=== PATIENT | male | born 1965 | race Caucasian/White ===

== ENCOUNTER 2016-12-17 04:19 | Emergency (ER) | payer OTHER ==
[~2016-12-17] VITALS: Ht 175.3 cm; Wt 109.1 kg
[~2016-12-17 04:19] MED LIST: ALBUAER3 INH; AMLO10TA2 PO; BUPR100T4 PO; IBUP-232 PO; LISI40TA PO; MEDR4PAK PO; OMEP20CA2 PO; TRAZ100T4 PO; ZITHTAB PO; ZYPR10TA PO
[2016-12-17 04:21] VITALS: BP 145/66; PULSE 85; RESP 20; TEMP 98.7
[2016-12-17 04:24] VITALS: O2SAT 95
[2016-12-17] MEDS ORDERED: LAMO100 PO (04:30)
[2016-12-17] MEDS ORDERED: SODIUM CHLOR 0.9% 1000 ML INJ 1,000 ML IV SCH (04:47)
[2016-12-17] MEDS ORDERED: SODIUM CHLORIDE 0.9% FLUSH 10 ML FLUSH IV FLUSH PRN (05:00)
[2016-12-17 05:28] LABS: AUTOMATED NEUTROPHIL # 6.3 TH/MM3 (1.8-7.7); BASOPHIL # 0.1 TH/MM3 (0-0.2); BASOPHIL % 0.8 % (0.0-2.0); EOSINOPHIL # 0.1 TH/MM3 (0-0.4); EOSINOPHIL % 1.6 % (0.0-4.0); HEMATOCRIT 42.2 % (39.0-51.0); HEMO FLAGS DIFF FINAL; LYMPH % 19.5 % (9.0-44.0); LYMPHOCYTE # 1.7 TH/MM3 (1.0-4.8); MEAN CORPUSCULAR HGB CONC 35.7 % (32.0-36.0); MONO % 3.9 % (0.0-8.0); NEUT % 74.2 % (16.0-70.0); PLATELET COUNT 241 TH/MM3 (150-450); RED BLOOD COUNT 5.02 MIL/MM3 (4.50-5.90); RED CELL DISTRIBUTION WIDTH 12.6 % (11.6-17.2); WHITE BLOOD COUNT 8.5 TH/MM3 (4.0-11.0)
[2016-12-17 05:40] LABS: APTT (PATIENT) 30.6 SEC (24.3-30.1); INTERNATIONAL NORMALIZED RATIO 1.4 RATIO; PROTHROMBIN TIME - PATIENT 15.4 SEC (9.8-11.6)
[2016-12-17] MEDS ORDERED: KETOROLAC TROMETHAMINE 30 MG/ML (IVP) VIAL IV PUSH ONE (05:45)
--- NOTE | 2016-12-17 05:46 | PD ---
HPI Chief Complaint: Pain: Acute or Chronic Time Seen by Provider: 04:38 Travel History International Travel<30 days: No Contact w/Intl Traveler<30days: No Traveled to known affect area: No History of Present Illness HPI Patient is a 51-year-old male who presents to emergency room with multiple complaints. Patient reports that he woke up this morning and had pains to the left side of his neck. Reports that he has been having pains all over his body , reports that he feels lightheaded and dizzy, reports that he feels dehydrated. Patient reports that the left side of his chest hurts him, reports that his chest always hurts him, paresis or shortness of breath with his symptoms. Patient also complains of abdominal pain, reports that he was told that he has liver disease in the past, patient requests that I check his liver functions. Reports that he does drink alcohol in the weekends, denies history of alcohol abuse. Patient reports that he feels uncomfortable all over, reports that he feels dehydrated. PFSH Past Medical History Cardiovascular Problems: Yes Diminished Hearing: No GERD: Yes Hypertension: Yes Respiratory: Yes Sleep Apnea: Yes (cpap at nite) Social History Alcohol Use: Yes (heavy alcohol use) Tobacco Use: Yes (1 PACK PER DAY) Substance Use: No Allergies-Medications (Allergen,Severity, Reaction): Coded Allergies: No Known Allergies (Unverified , 12/17/16) Reported Meds & Prescriptions Reported Meds & Active Scripts Active Amlodipine (Amlodipine Besylate) 10 Mg Tab 10 Mg PO DAILY Lisinopril 40 Mg Tab 40 Mg PO DAILY Reported Lamictal (Lamotrigine) 100 Mg Tab 100 Mg PO DAILY Bupropion HCl 100 Mg Tab 300 Mg PO DAILY Trazodone (Trazodone HCl) 100 Mg Tab 100 Mg PO HS Ibuprofen 600 Mg Tab 600 Mg PO Q6H PRN Omeprazole 20 Mg Cap 40 Mg PO DAILY Review of Systems General / Constitutional: No: Fever, Chills Eyes: No: Visual changes HENT: Positive: Lightheadedness, Neck Pain, No: Headaches Cardiovascular: Positive: Chest Pain or Discomfort Respiratory: No: Shortness of Breath Gastrointestinal: Positive: Abdominal Pain, No: Nausea, Vomiting Genitourinary: Positive: Decreased Urinary Output, No: Dysuria Musculoskeletal: No: Pain Skin: No Rash Neurologic: No: Weakness Psychiatric: No: Depression Endocrine: No: Polydipsia Hematologic/Lymphatic: No: Easy Bruising Physical Exam Narrative GENERAL: NAD SKIN: Focused skin assessment warm/dry. HEAD: Atraumatic. Normocephalic. EYES: Pupils equal and round. No scleral icterus. No injection or drainage. ENT: No nasal bleeding or discharge. Mucous membranes pink and moist. NECK: Trachea midline. No JVD. Patient with left sided paraspinal muscle tenderness CARDIOVASCULAR: Regular rate and rhythm. No murmur appreciated. RESPIRATORY: No accessory muscle use. Clear to auscultation. Breath sounds equal bilaterally. GASTROINTESTINAL: Abdomen soft, non-tender, nondistended. Hepatic and splenic margins not palpable. Patient with no abdominal pain on palpation MUSCULOSKELETAL: No obvious deformities. No clubbing. No cyanosis. No edema. NEUROLOGICAL: Awake and alert. No obvious cranial nerve deficits. Motor grossly within normal limits. Normal speech. CN 2-12 grossly intact with no neurological deficits PSYCHIATRIC: Appropriate mood and affect; insight and judgment normal. Data Data Last Documented VS Vital Signs Date Time Temp Pulse Resp B/P Pulse Ox O2 Delivery O2 Flow Rate FiO2 12/17/16 04:24 95 12/17/16 04:21 98.7 85 20 145/66 Orders Complete Blood Count With Diff (12/17/16 04:47) Comprehensive Metabolic Panel (12/17/16 04:47) Lipase (12/17/16 04:47) Prothrombin Time / Inr (Pt) (12/17/16 04:47) Act Partial Throm Time (Ptt) (12/17/16 04:47) Urinalysis - C+S If Indicated (12/17/16 04:47) Iv Access Insert/Monitor (12/17/16 04:47) Ecg Monitoring (12/17/16 04:47) Sodium Chlor 0.9% 1000 Ml Inj (Ns 1000 M (12/17/16 04:47) Sodium Chloride 0.9% Flush (Ns Flush) (12/17/16 05:00) Drug Screen, Random Urine (12/17/16 04:47) Ketorolac Inj (Toradol Inj) (12/17/16 05:45) Chest, Single Ap (12/17/16 05:47) Labs Laboratory Tests Test 12/17/16 05:10 White Blood Count 8.5 TH/MM3 Red Blood Count 5.02 MIL/MM3 Hemoglobin 15.1 GM/DL Hematocrit 42.2 % Mean Corpuscular Volume 84.0 FL Mean Corpuscular Hemoglobin 30.0 PG Mean Corpuscular Hemoglobin 35.7 % Concent Red Cell Distribution Width 12.6 % Platelet Count 241 TH/MM3 Mean Platelet Volume 7.4 FL Neutrophils (%) (Auto) 74.2 % Lymphocytes (%) (Auto) 19.5 % Monocytes (%) (Auto) 3.9 % Eosinophils (%) (Auto) 1.6 % Basophils (%) (Auto) 0.8 % Neutrophils # (Auto) 6.3 TH/MM3 Lymphocytes # (Auto) 1.7 TH/MM3 Monocytes # (Auto) 0.3 TH/MM3 Eosinophils # (Auto) 0.1 TH/MM3 Basophils # (Auto) 0.1 TH/MM3 CBC Comment DIFF FINAL Differential Comment Prothrombin Time 15.4 SEC Prothromb Time International 1.4 RATIO Ratio Activated Partial 30.6 SEC Thromboplast Time Sodium Level 136 MEQ/L Potassium Level 3.5 MEQ/L Chloride Level 99 MEQ/L Carbon Dioxide Level 25.0 MEQ/L Anion Gap 12 MEQ/L Blood Urea Nitrogen 9 MG/DL Creatinine 1.02 MG/DL Estimat Glomerular Filtration 77 ML/MIN Rate Random Glucose 99 MG/DL Calcium Level 8.1 MG/DL Total Bilirubin 2.9 MG/DL Aspartate Amino Transf 3632 U/L (AST/SGOT) Alanine Aminotransferase 2334 U/L (ALT/SGPT) Alkaline Phosphatase 104 U/L Total Protein 6.4 GM/DL Albumin 3.7 GM/DL Lipase 214 U/L [facility] Medical Decision Making Medical Screen Exam Complete: Yes Emergency Medical Condition: Yes Interpretation(s) EKG at 0418: NSR at 82bpm, qt/qtc: 364/402, no acute st or t wave changes Vital Signs Date Time Temp Pulse Resp B/P Pulse Ox O2 Delivery O2 Flow Rate FiO2 12/17/16 04:24 95 12/17/16 04:21 98.7 85 20 145/66 Differential Diagnosis Dehydration, electrolyte abnormality, cervical strain, ACS, arrhythmia, pneumonia, pneumothorax Narrative Course Patient is a 51-year-old male who presents to emergency room with multiple complaints. Patient reports that he has been feeling dizzy, lightheaded, has been having chest pain, neck pain, body pains for the past 2 days. He reports that he feels dehydrated. Reports that symptoms have been ongoing for the past 2 days. Overall, patient with benign exam, cranial nerves to 12 grossly intact with no neurological deficits. Patient does complain of left-sided neck tenderness, patient does have paraspinal tenderness on evaluation. IV Toradol ordered for patient. Patient with complaints of chest pain for the past few weeks, EKG is normal sinus rhythm at 82 bpm, no acute ST-T wave changes. Plan to obtain lab work and x-ray of the chest, will give IV fluids and monitor on secured entrance monitor. Patient comfortable in the emergency room, sleeping with no complaints. Plan to discharge patient with follow-up with his primary care doctor Patient awoken. I reviewed all labs and studies with him in detail. Patient will return to emergency room as needed. Patient will follow-up with collator operator for his transaminitis which is known to him already. Reports that his LFT's are at baseline. Discussed need to stop drinking alcohol. Patient understands Diagnosis Primary Impression: Generalized weakness Additional Impressions: Cervical strain Qualified Code: S16.1XXA - Cervical strain, initial encounter Transaminitis Referrals: Jayce Telles MD Patient Instructions: General Instructions Additional Instructions: Please follow-up with your primary care doctor Return to the emergency room as needed Return to the emergency room if symptoms worsen or progress Please follow up with collator operator as soon as possible as your liver function test were elevated Disposition: 01 DISCHARGE HOME Condition: Stable PrimitivoLeslie Dharmesh SANDERSON Dec 17, 2016 05:46
[2016-12-17 05:52] LABS: ANION GAP 12 MEQ/L (5-15); BLOOD UREA NITROGEN 9 MG/DL (7-18); CHLORIDE 99 MEQ/L (98-107); GLOMERULAR FILTRATION RATE 77 ML/MIN (>89); POTASSIUM 3.5 MEQ/L (3.5-5.1); SODIUM (NA) 136 MEQ/L (136-145)
[2016-12-17 06:08] LABS: ALKALINE PHOSPHATASE 104 U/L (45-117); ALT (GPT) 2334 U/L (12-78); AST (GOT) 3632 U/L (15-37); TOTAL BILIRUBIN ADULT 2.9 MG/DL (0.2-1.0)
[2016-12-17 07:02] LABS: BLOOD, URINE TRACE (NEG); GLUCOSE,URINE NEG (NEG); KETONE, URINE NEG (NEG); NITRITE,URINE NEG (NEG); URINE COLOR YELLOW (YELLW/STRAW)
[2016-12-17 07:05] LABS: AMPHETAMINE, URINE NEG (NEG); BARBITURATES, URINE NEG (NEG); COCAINE, URINE NEG (NEG); COMMENT (UR) CULT NOT INDICATED; CULTURE IF INDICATED CULT NOT INDICATED
--- NOTE | 2016-12-17 07:06 | RADRPT ---
EXAM DATE/TIME: 12/17/2016 06:10 [facility] COMPARISON: No previous studies available for comparison. INDICATIONS : Shortness of breath MEDICAL HISTORY : None. SURGICAL HISTORY : None. ENCOUNTER: Initial ACUITY: 1 day PAIN SCORE: Non-responsive. LOCATION: Bilateral chest FINDINGS: A single view of the chest demonstrates the lungs to be symmetrically aerated without evidence of mas s, infiltrate or effusion. 2 calcified granuloma lateral left midlung, both measuring 6 mm. The car diomediastinal contours are unremarkable. Osseous structures are intact. CONCLUSION: No focal infiltrates seen. Darron Torres MD on December 17, 2016 at 7:04 Board Certified Radiologist. This report was verified electronically.
[2016-12-17 07:39] VITALS: BP 134/78
--- NOTE | 2016-12-17 07:49 | EKG ---
Date Performed: 12/17/2016 Time Performed: 04:18:42 PTAGE: 51 years EKG: Sinus rhythm NORMAL ECG NO PREVIOUS TRACING DOCTOR: Oh Charles Interpretating Date/Time 12/17/2016 07:47:39
== END 2016-12-17 07:41 | disposition home or self-care (01) ==
LOC: NEPC 04:19
DX: R53.1 Weakness (principal); S16.1XXA Strain of muscle, fascia and tendon at neck level, initial encounter; R74.0 Nonspecific elevation of levels of transaminase and lactic acid dehydrogenase [LDH]; R42 Dizziness and giddiness; K21.9 Gastro-esophageal reflux disease without esophagitis; I10 Essential (primary) hypertension; X58.XXXA Exposure to other specified factors, initial encounter; Z79.899 Other long term (current) drug therapy
CPT/HCPCS: 71010; 80053; 80307; 81001; 83690; 85025; 85610; 85730; 93005; 96361; 96374; 99285; J1885; J7030

== ENCOUNTER → 2017-02-05 | Outpatient (CLI) | payer OTHER ==
[~2017-02-05] MED LIST changes: -IBUP-232 PO; +LAMO100 PO; -MEDR4PAK PO; +METH125I2 IM; -TRAZ100T4 PO; +TRAZ100T6 PO; -ZITHTAB PO; -ZYPR10TA PO
[2017-02-05 13:36] LABS: ALT (GPT) 28 U/L (12-78); ANION GAP 11 MEQ/L (5-15); AST (GOT) 18 U/L (15-37); BLOOD UREA NITROGEN 21 MG/DL (7-18); CHLORIDE 112 MEQ/L (98-107); GLOMERULAR FILTRATION RATE 52 ML/MIN (>89); GLUCOSE,FASTING 97 MG/DL (74-99); POTASSIUM 4.3 MEQ/L (3.5-5.1); SODIUM (NA) 140 MEQ/L (136-145)
[2017-02-05 13:37] LABS: ALKALINE PHOSPHATASE 78 U/L (45-117); TOTAL BILIRUBIN ADULT 0.4 MG/DL (0.2-1.0)
== END ==
LOC: CLAB 12:54
PROVIDERS: ATTEND Nurse Practitioner Family
DX: R74.0 Nonspecific elevation of levels of transaminase and lactic acid dehydrogenase [LDH] (principal); R19.7 Diarrhea, unspecified; I10 Essential (primary) hypertension
CPT/HCPCS: 36415; 80053; 80074

== ENCOUNTER → 2017-02-09 | Outpatient (CLI) | payer OTHER ==
--- NOTE | 2017-02-09 15:45 | RADRPT ---
EXAM DATE/TIME: 02/09/2017 14:36 [facility] COMPARISON: No previous studies available for comparison. INDICATIONS : Abnormal labs. MEDICAL HISTORY : Hypertension. Gastroesophageal reflux disease. Liver disease. Sleep apnea. Gout. ETOH use daily. SURGICAL HISTORY : None. ENCOUNTER: Initial ACUITY: 1 day PAIN SCORE: 1/10 LOCATION: Bilateral upper quadrant MEASUREMENTS: LIVER: 18.6 cm length COMMON DUCT: 6 mm RIGHT KIDNEY: 11.6 x 4.9 x 5.9 cm SPLEEN: 12.6 cm length FINDINGS: LIVER: Normal echotexture without focal lesion or ductal dilatation. COMMON DUCT: No intraluminal mass or stone visualized. GALLBLADDER: Contains no stones, demonstrates no wall thickening or pericholecystic fluid. PANCREAS: The visualized portions are within normal limits. RIGHT KIDNEY: No hydronephrosis, stone or mass. SPLEEN: No focal lesion. CONCLUSION: 1. Mild hepatomegaly. Humberto Jackson MD on February 09, 2017 at 15:39 Board Certified Radiologist. This report was verified electronically.
== END ==
LOC: HRAD 14:04
PROVIDERS: ATTEND Nurse Practitioner Family
DX: R74.0 Nonspecific elevation of levels of transaminase and lactic acid dehydrogenase [LDH] (principal)
CPT/HCPCS: 76705

== ENCOUNTER 2017-08-09 10:49 | Emergency (ER) | payer MEDICAID, OTHER ==
[~2017-08-09 10:49] MED LIST changes: -BUPR100T4 PO; -LAMO100 PO; -METH125I2 IM; +TRAZ100T10 PO; -TRAZ100T6 PO
[2017-08-09 10:52] VITALS: BP 174/74; PULSE 89; RESP 16; TEMP 101.6; O2SAT 95
[2017-08-09] MEDS ORDERED: LAMO25 PO (11:00)
[2017-08-09] MEDS ORDERED: RESP: ALBUTEROL 2.5 MG/IPRATROPIUM 0.5 MG NEB (SCH) INH ONE (11:15)
[2017-08-09] MEDS ORDERED: SODIUM CHLORIDE 0.9% FLUSH 10 ML FLUSH IVF PRN (11:15)
--- NOTE | 2017-08-09 11:21 | PD ---
HPI Chief Complaint: Cold / Flu Symptoms Time Seen by Provider: 11:01 Travel History International Travel<30 days: No Contact w/Intl Traveler<30days: No Traveled to known affect area: No History of Present Illness HPI 52-year-old male presents emergency department complaining of cough, congestion , fever for approximately 1 week. States that his cough has been dry. States that he has had swelling of his lower extremities for approximately 2 weeks but states that may be related to him drinking a lot of Gatorade. Also states that he has had orthopnea and has woken up very short of breath and has had to sleep in a recliner over the last several days. Patient reports he has anterior bilateral chest pain that does not radiate that he attributes to coughing. Patient states currently he does not really have any pain at this point. Medical history significant for hypertension, bipolar, PTSD, gastric reflux. Patient is on disability for his PTSD. Patient does not have a primary care physician although is hoping to obtain one soon. Patient does not take aspirin. Patient is rather a poor historian and has not had a primary care physician in years. He does follow [facility] for his bipolar disorder. He does smoke. PFSH Past Medical History Bipolar Disorder: Yes (and PTSD) Anxiety: Yes Depression: Yes Cardiovascular Problems: Yes (HTN) Congestive Heart Failure: Yes Diminished Hearing: No GERD: Yes Hypertension: Yes Respiratory: Yes Sleep Apnea: Yes (cpap at night, noncompliant) Influenza Vaccination: No Past Surgical History Surgical History: No Previous Surgery Social History Alcohol Use: Yes (occas) Tobacco Use: Yes (1 PACK PER DAY) Substance Use: No Allergies-Medications (Allergen,Severity, Reaction): Coded Allergies: No Known Allergies (Verified Adverse Reaction, Unknown, 08/09/17) Reported Meds & Prescriptions Reported Meds & Active Scripts Active Ventolin Hfa 18 GM Inh (Albuterol Sulfate) 90 Mcg/Act Aer 2 Puff INH Q4-6H PRN Ciprofloxacin (Ciprofloxacin HCl) 500 Mg Tab 500 Mg PO BID 7 Days Amlodipine (Amlodipine Besylate) 10 Mg Tab 10 Mg PO DAILY Lisinopril 40 Mg Tab 40 Mg PO DAILY Omeprazole 20 Mg Cap 40 Mg PO DAILY Reported Lamictal (Lamotrigine) 25 Mg Tab 25 Mg PO HS Review of Systems Except as stated in HPI: all other systems reviewed are Neg Physical Exam Narrative GENERAL: Well-developed, well-nourished SKIN: Focused skin assessment warm/dry. HEAD: Atraumatic. Normocephalic. EYES: Pupils equal and round. No scleral icterus. No injection or drainage. ENT: No nasal bleeding or discharge. Mucous membranes pink and moist. NECK: Trachea midline. No JVD. CARDIOVASCULAR: Regular rate and rhythm. No murmur appreciated. RESPIRATORY: No accessory muscle use. Clear to auscultation. Breath sounds equal bilaterally. GASTROINTESTINAL: Abdomen soft, non-tender, nondistended. Protuberant abdomen MUSCULOSKELETAL: No obvious deformities. No clubbing. No cyanosis. +2 pitting edema. Homans sign negative. NEUROLOGICAL: Awake and alert. No obvious cranial nerve deficits. Motor grossly within normal limits. Normal speech. PSYCHIATRIC: Appropriate mood and affect; insight and judgment normal. Data Data Last Documented VS Vital Signs Date Time Temp Pulse Resp B/P (MAP) Pulse Ox O2 Delivery O2 Flow Rate FiO2 08/09/17 11:32 99.9 90 16 139/63 (88) 95 08/09/17 11:02 Room Air Orders Orders Electrocardiogram (08/09/17 ) Complete Blood Count With Diff (08/09/17 11:11) Comprehensive Metabolic Panel (08/09/17 11:11) B-Type Natriuretic Peptide (08/09/17 11:11) Act Partial Throm Time (Ptt) (08/09/17 11:11) Prothrombin Time / Inr (Pt) (08/09/17 11:11) Troponin I (08/09/17 11:11) Influenzae A/B Antigen (08/09/17 11:11) Iv Access Insert/Monitor (08/09/17 11:11) Electrocardiogram (08/09/17 11:11) Ecg Monitoring (08/09/17 11:11) Oximetry (08/09/17 11:11) Chest, Single Ap (08/09/17 11:11) Sodium Chloride 0.9% Flush (Ns Flush) (08/09/17 11:15) Albuterol-Ipratropium Neb (Duoneb Neb) (08/09/17 11:15) Azithromycin Inj (Zithromax Inj) (08/09/17 11:45) Labs Laboratory Tests Test 08/09/17 11:25 White Blood Count 6.2 TH/MM3 Red Blood Count 4.10 MIL/MM3 Hemoglobin 12.7 GM/DL Hematocrit 37.2 % Mean Corpuscular Volume 90.8 FL Mean Corpuscular Hemoglobin 31.0 PG Mean Corpuscular Hemoglobin Concent 34.1 % Red Cell Distribution Width 14.6 % Platelet Count 194 TH/MM3 Mean Platelet Volume 7.1 FL Neutrophils (%) (Auto) 68.9 % Lymphocytes (%) (Auto) 19.0 % Monocytes (%) (Auto) 11.1 % Eosinophils (%) (Auto) 0.5 % Basophils (%) (Auto) 0.5 % Neutrophils # (Auto) 4.3 TH/MM3 Lymphocytes # (Auto) 1.2 TH/MM3 Monocytes # (Auto) 0.7 TH/MM3 Eosinophils # (Auto) 0.0 TH/MM3 Basophils # (Auto) 0.0 TH/MM3 CBC Comment DIFF FINAL Differential Comment Prothrombin Time 10.3 SEC Prothromb Time International Ratio 1.0 RATIO Activated Partial Thromboplast Time 28.0 SEC Blood Urea Nitrogen 8 MG/DL Creatinine 1.11 MG/DL Random Glucose 105 MG/DL Total Protein 7.1 GM/DL Albumin 3.0 GM/DL Calcium Level 8.3 MG/DL Alkaline Phosphatase 70 U/L Aspartate Amino Transf (AST/SGOT) 16 U/L Alanine Aminotransferase (ALT/SGPT) 22 U/L Total Bilirubin 0.5 MG/DL Sodium Level 140 MEQ/L Potassium Level 3.7 MEQ/L Chloride Level 104 MEQ/L Carbon Dioxide Level 27.4 MEQ/L Anion Gap 9 MEQ/L Estimat Glomerular Filtration Rate 69 ML/MIN Troponin I LESS THAN 0.02 NG/ML B-Type Natriuretic Peptide 23 PG/ML MDM Medical Decision Making Medical Screen Exam Complete: Yes Emergency Medical Condition: Yes Differential Diagnosis Pneumonia, influenza, respiratory infection, CHF Narrative Course 52-year-old male with a history of hypertension, bipolar disorder, gastric reflux who presents to the emergency department complaining of cough, congestion , fever and shortness of breath for approximately 1 week. In addition, patient states that his legs been swelling for approximately 2 weeks and has had chest pain for 2-3 days he believes as a result of his cough. He has had PND that started last Wednesday as well. He has been taking ibuprofen for his fever and states his temperature has been up to 103, reduced with IB. He took IB this morning. Labs and imaging studies ordered. There is a concern for a cardiac involvement as patient does have risk factors. Vital signs 101.6, HR 90 EKG shows sinus rhythm without STEMI pattern. Chest x-ray demonstrates a right upper lobe infiltrates, consistent with pneumonia. Patient will be treated with azithromycin 500 mg IV. Patient is stable in the emergency department today and he would like to go home. There is no evidence of cardiac involvement at this point. Strongly advised patient follow-up with [facility] for his care. Patient be discharged with azithromycin. Patient states that he does not have a disability check until the next month. States that he may not be able to afford azithromycin. Recommended good Rx however, patient was rather reluctant. I will discharge him home with Cipro as this is free at [facility]. Also will prescribe an albuterol inhaler as the DuoNeb did help his symptoms. Advised to return for worsening or persistent symptoms. Diagnosis Primary Impression: Pneumonia Qualified Codes: J18.1 - Lobar pneumonia, unspecified organism Referrals: [facility] Additional Instructions: Follow-up with [facility] as discussed. Take all medications as prescribed. If you develop increased shortness of breath, chest pain or worsening symptoms return to emergency department. Continue Tylenol or Motrin for your fever and body aches. Scripts Albuterol 18 GM Inh (Ventolin Hfa 18 GM Inh) 90 Mcg/Act Aer 2 PUFF INH Q4-6H Y for SHORTNESS OF BREATH, #1 INHALER 0 Refills Prov: Seth Harrington MD 08/09/17 Ciprofloxacin (Ciprofloxacin) 500 Mg Tab 500 MG PO BID for Infection for 7 Days, #14 TAB 0 Refills Prov: Seth Harrington MD 08/09/17 Disposition: 01 DISCHARGE HOME Condition: Stable uYly Perdomo Aug 09, 2017 11:21
[2017-08-09 11:32] VITALS: BP 139/63; PULSE 90; RESP 16; TEMP 99.9; O2SAT 95
--- NOTE | 2017-08-09 11:36 | RADRPT ---
EXAM DATE/TIME: 08/09/2017 11:13 [facility] COMPARISON: CHEST SINGLE AP, December 17, 2016, 6:10. INDICATIONS : Shortness of breath, fever and congestion for 1 week. MEDICAL HISTORY : Hypertension. Congestive heart failure. Liver disease. SURGICAL HISTORY : None. ENCOUNTER: Initial ACUITY: 1 week PAIN SCORE: 5/10 LOCATION: Bilateral chest FINDINGS: A single portable frontal view of the chest is an area consolidation within the right upper lobe. Lef t lung is clear. Calcified granulomas are seen within the left upper lobe. An old left fourth rib fra cture. Heart normal in size. CONCLUSION: Right upper lobe infiltrate. Darron Aquino Jr., MD on August 09, 2017 at 11:33 Board Certified Radiologist. This report was verified electronically.
[2017-08-09 11:44] LABS: AUTOMATED NEUTROPHIL # 4.3 TH/MM3 (1.8-7.7); BASOPHIL % 0.5 % (0.0-2.0); EOSINOPHIL % 0.5 % (0.0-4.0); HEMATOCRIT 37.2 % (39.0-51.0); HEMOGLOBIN 12.7 GM/DL (13.0-17.0); LYMPHOCYTE # 1.2 TH/MM3 (1.0-4.8); MEAN CELL VOLUME 90.8 FL (80.0-100.0); MEAN CORPUSCULAR HGB CONC 34.1 % (32.0-36.0); MEAN PLATELET VOLUME 7.1 FL (7.0-11.0); MONO % 11.1 % (0.0-8.0); MONOCYTE # 0.7 TH/MM3 (0-0.9); NEUT % 68.9 % (16.0-70.0); PLATELET COUNT 194 TH/MM3 (150-450); RED CELL DISTRIBUTION WIDTH 14.6 % (11.6-17.2); WHITE BLOOD COUNT 6.2 TH/MM3 (4.0-11.0)
[2017-08-09] MEDS ORDERED: AZITHROMYCIN INJ 500 MG in SODIUM CHLOR 0.9% 250 ML INJ 250 ML IV ONE (11:45)
[2017-08-09 11:54] LABS: PROTHROMBIN TIME - PATIENT 10.3 SEC (9.8-11.6)
[2017-08-09 12:01] LABS: ALT (GPT) 22 U/L (12-78); AST (GOT) 16 U/L (15-37); BICARBONATE 27.4 MEQ/L (21.0-32.0); BLOOD UREA NITROGEN 8 MG/DL (7-18); CALCIUM 8.3 MG/DL (8.5-10.1); CHLORIDE 104 MEQ/L (98-107); CREATININE 1.11 MG/DL (0.60-1.30); GLOMERULAR FILTRATION RATE 69 ML/MIN (>89); GLUCOSE,RANDOM 105 MG/DL (74-106); SODIUM (NA) 140 MEQ/L (136-145)
[2017-08-09 12:05] LABS: ALKALINE PHOSPHATASE 70 U/L (45-117); TOTAL BILIRUBIN ADULT 0.5 MG/DL (0.2-1.0); TOTAL PROTEIN 7.1 GM/DL (6.4-8.2); TROPONIN I LESS THAN 0.02 NG/ML (0.02-0.05)
[2017-08-09] MEDS ORDERED: CIPR500T2 PO (12:25)
[2017-08-09] MEDS ORDERED: VENTAER INH (12:25)
[2017-08-09 12:40] VITALS: BP 152/67; PULSE 94; RESP 16; TEMP 101.8; O2SAT 97
[2017-08-09] MEDS ORDERED: ACETAMINOPHEN 500 MG CPLT PO ONE (12:45)
[2017-08-09 14:12] VITALS: BP 128/76
--- NOTE | 2017-08-09 22:44 | EKG ---
Date Performed: 08/09/2017 Time Performed: 11:14:35 PTAGE: 52 years EKG: Sinus rhythm NONSPECIFIC T-WAVE ABNORMALITY BORDERLINE ECG PREVIOUS TRACING : 12/17/2016 04.18 DOCTOR: Fredrick Avendaño Interpretating Date/Time 08/09/2017 22:43:05
== END 2017-08-09 14:35 | disposition home or self-care (01) ==
LOC: NEPC 10:49
DX: J18.1 Lobar pneumonia, unspecified organism (principal); I11.0 Hypertensive heart disease with heart failure; I50.9 Heart failure, unspecified; K76.9 Liver disease, unspecified; R94.31 Abnormal electrocardiogram [ECG] [EKG]; F31.9 Bipolar disorder, unspecified; F43.10 Post-traumatic stress disorder, unspecified; F17.210 Nicotine dependence, cigarettes, uncomplicated; Z79.899 Other long term (current) drug therapy
CPT/HCPCS: 71045; 80053; 83880; 84484; 85025; 85610; 85730; 87804; 93005; 94664; 96374; 99285; J0456; J7050

== ENCOUNTER 2017-09-02 20:14 | Emergency (ER) | payer MEDICAID ==
[~2017-09-02] VITALS: Ht 175.3 cm; Wt 90.0 kg
[~2017-09-02 20:14] MED LIST changes: -ALBUAER3 INH; +CIPR500T2 PO; +LAMO25 PO; -TRAZ100T10 PO; +VENTAER INH
[2017-09-02] MEDS ORDERED: LIDOCAINE HCL 1% PF 30 ML VIAL ONE (20:29)
[2017-09-02 20:50] VITALS: BP 149/68; PULSE 66; RESP 17; TEMP 98.3; O2SAT 98
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
--- NOTE | 2017-09-02 21:46 | RADRPT ---
EXAM DATE/TIME: 09/02/2017 21:03 [facility] COMPARISON: No previous studies available for comparison. INDICATIONS : Trauma, patient fell hitting head and face. RADIATION DOSE: 21.10 CTDIvol (mGy) MEDICAL HISTORY : Cardiovascular disease. Hypertension. Congestive heart failure. SURGICAL HISTORY : None. ENCOUNTER: Initial ACUITY: 1 day PAIN SCORE: 5/10 LOCATION: facial TECHNIQUE: Volumetric scanning of the facial bones was performed. Using automated exposure control and adjustme nt of the mA and/or kV according to patient size, radiation dose was kept as low as reasonably achiev able to obtain optimal diagnostic quality images. DICOM format image data is available electronicall y for review and comparison. FINDINGS: Preseptal hematoma is seen of the right orbit. There is a comminuted inferior wall blowout fracture. Minimally displaced fractures are seen of the medial and lateral huang of the orbit and some of this is near the apex. A small amount of blood seen in the Postseptal fat, mostly between the optic nerve and medial rectus. I don't see anything transected. No associated significant mass effect. No extraoc ular muscle entrapment seen. There is a hairline superior orbital fracture which extends into the rig ht frontal bone/calvarium, series 304 image 14. There is comminuted but minimally displaced fracturin g of the anterior and lateral huang of the right maxillary sinus. Left orbit and other facial bones are intact. CONCLUSION: 1. Comminuted fracturing of the right orbit including in the region of the apex. Large pre-septal hem atoma and also a small intraconal hematoma. 2. Hairline fracture superiorly of the right orbit extends into the calvarium/frontal bone. Head CT t o follow. 3. Comminuted anterior and lateral wall fracturing of the right maxillary sinus. Taiwo Osman MD on September 02, 2017 at 21:39 Board Certified Radiologist. This report was verified electronically.
--- NOTE | 2017-09-02 21:47 | RADRPT ---
EXAM DATE/TIME: 09/02/2017 21:03 [facility] COMPARISON: No previous studies available for comparison. INDICATIONS : TRauma, patient fell hitting head. RADIATION DOSE: 66.34 CTDIvol (mGy) MEDICAL HISTORY : Cardiovascular disease. Hypertension. Congestive heart failure. SURGICAL HISTORY : None. ENCOUNTER: Initial ACUITY: 1 day PAIN SCALE: 5/10 LOCATION: Bilateral cranial TECHNIQUE: Multiple contiguous axial images were obtained of the head. Using automated exposure control and adj ustment of the mA and/or kV according to patient size, radiation dose was kept as low as reasonably a chievable to obtain optimal diagnostic quality images. DICOM format image data is available electro nically for review and comparison. FINDINGS: CEREBRUM: The ventricles are normal for age. No evidence of midline shift, mass lesion, hemorrhage or acute in farction. No extra-axial fluid collections are seen. POSTERIOR FOSSA: The cerebellum and brainstem are intact. The 4th ventricle is midline. The cerebellopontine angle i s unremarkable. EXTRACRANIAL: The visualized portion of the orbits is intact. SKULL: There is a hairline fracture of the right frontal bone extending into the right orbit. CONCLUSION: Nondisplaced skull fracture involving the right frontal bone. No bleed or other acute intracranial ab normality. No pneumocephaly seen. Taiwo Osman MD on September 02, 2017 at 21:44 Board Certified Radiologist. This report was verified electronically.
--- NOTE | 2017-09-02 22:10 | RADRPT ---
EXAM DATE/TIME: 09/02/2017 21:03 [facility] COMPARISON: No previous studies available for comparison. INDICATIONS : Trauma, patient fell hitting head. RADIATION DOSE: 21.96 CTDIvol (mGy) MEDICAL HISTORY : Cardiovascular disease. Hypertension. Congestive heart failure. SURGICAL HISTORY : None. ENCOUNTER: Initial ACUITY: 1 day PAIN SCALE: 5/10 LOCATION: neck TECHNIQUE: Volumetric scanning of the cervical spine was performed. Multiplanar reconstructions in the sagittal, coronal and oblique axial planes were performed. Using automated exposure control and adjustment o f the mA and/or kV according to patient size, radiation dose was kept as low as reasonably achievable to obtain optimal diagnostic quality images. DICOM format image data is available electronically f or review and comparison. FINDINGS: VERTEBRAE: Normal vertebral body height. ALIGNMENT: No evidence of subluxation. C2-C3: The bony spinal canal is normal in size. No evidence of disc bulge or herniation. The neural forami na are bilaterally patent. C3-C4: Mild disc space narrowing with right greater than left uncovertebral and facet osteoarthritis. There is mild right foraminal stenosis. C4-C5: The bony spinal canal is normal in size. No evidence of disc bulge or herniation. The neural forami na are bilaterally patent. C5-C6: Moderate disc space narrowing with a small posterior disc osteophyte complex and mild bilateral uncov ertebral and facet osteoarthritis noted. C6-C7: The bony spinal canal is normal in size. No evidence of disc bulge or herniation. The neural forami na are bilaterally patent. C7-T1: The bony spinal canal is normal in size. No evidence of disc bulge or herniation. The neural forami na are bilaterally patent. CONCLUSION: Intact cervical spine. Degenerative changes as above, mostly C3/C4 and C5/C6. Taiwo Osman MD on September 02, 2017 at 22:06 Board Certified Radiologist. This report was verified electronically.
[2017-09-02] MEDS ORDERED: PERC5TAB12 PO (22:41)
[2017-09-02] MEDS ORDERED: AUGM875T3 PO (22:41)
[2017-09-02] MEDS ORDERED: NAPROXEN 500 MG TAB PO ONE (23:00)
[2017-09-02] MEDS ORDERED: oxyCODONE/ACETAMINOPHEN 5 MG/325 MG TAB PO ONE (23:00)
[2017-09-02] MEDS ORDERED: LIDOCAINE HCL 1% 30 ML VIAL INFIL ONE (23:00)
== END 2017-09-02 23:20 | disposition home or self-care (01) ==
LOC: NEPD 20:14
DX: S02.0XXA Fracture of vault of skull, initial encounter for closed fracture (principal); S02.81XA Fracture of other specified skull and facial bones, right side, initial encounter for closed fracture; S01.111A Laceration without foreign body of right eyelid and periocular area, initial encounter; F10.129 Alcohol abuse with intoxication, unspecified; M50.31 Other cervical disc degeneration, high cervical region; I10 Essential (primary) hypertension; W18.30XA Fall on same level, unspecified, initial encounter; Y92.512 Supermarket, store or market as the place of occurrence of the external cause
CPT/HCPCS: 70450; 70486; 72125; 99283

== ENCOUNTER → 2017-10-05 | Outpatient (CLI) | payer MEDICAID ==
[~2017-10-05] MED LIST changes: +AUGM875T3 PO; +PERC5TAB12 PO
--- NOTE | 2017-10-05 13:39 | RADRPT ---
EXAM DATE/TIME: 10/05/2017 13:22 [facility] COMPARISON: No previous studies available for comparison. INDICATIONS : Right side chest pain. MEDICAL HISTORY : Hypertension. Congestive heart failure. Liver disease SURGICAL HISTORY : None. ENCOUNTER: Initial ACUITY: 1 month PAIN SCORE: 7/10 LOCATION: Right chest FINDINGS: PA and lateral views of the chest demonstrate the lungs to be symmetrically aerated without evidence of mass, infiltrate or effusion. The cardiomediastinal contours are unremarkable. Calcified granulo mas left lung. Osseous structures are intact. CONCLUSION: No acute disease. Leno Cox MD on October 05, 2017 at 13:37 Board Certified Radiologist. This report was verified electronically.
== END ==
LOC: HRSP 12:07
PROVIDERS: ATTEND Internal Medicine Sleep Medicine
DX: R06.2 Wheezing (principal); R06.89 Other abnormalities of breathing
CPT/HCPCS: 71046; 94060; 94726; 94729

== ENCOUNTER 2017-10-26 10:10 | Emergency (ER) | payer MEDICAID ==
[2017-10-26] MEDS ORDERED: SODIUM CHLORIDE 0.9% FLUSH 10 ML FLUSH IVF (10:30)
[2017-10-26] MEDS: ASPIRIN 325 MG TAB PO (11:06)
[2017-10-26 12:33] LABS: AUTOMATED NEUTROPHIL # 5.8 TH/MM3 (1.8-7.7); BASOPHIL # 0.1 TH/MM3 (0-0.2); BASOPHIL % 0.6 % (0.0-2.0); EOSINOPHIL % 0.4 % (0.0-4.0); HEMATOCRIT 38.3 % (39.0-51.0); HEMO FLAGS DIFF FINAL; HEMOGLOBIN 13.2 GM/DL (13.0-17.0); LYMPH % 20.4 % (9.0-44.0); LYMPHOCYTE # 1.6 TH/MM3 (1.0-4.8); MEAN CORPUSCULAR HEMOGLOBIN 30.7 PG (27.0-34.0); MEAN CORPUSCULAR HGB CONC 34.5 % (32.0-36.0); MONO % 5.4 % (0.0-8.0); MONOCYTE # 0.4 TH/MM3 (0-0.9); NEUT % 73.2 % (16.0-70.0); PLATELET COUNT 303 TH/MM3 (150-450); RED CELL DISTRIBUTION WIDTH 14.5 % (11.6-17.2); WHITE BLOOD COUNT 7.9 TH/MM3 (4.0-11.0)
[2017-10-26 12:45] LABS: ALBUMIN 3.3 GM/DL (3.4-5.0); ANION GAP 11 MEQ/L (5-15); AST (GOT) 19 U/L (15-37); BICARBONATE 22.2 MEQ/L (21.0-32.0); BLOOD UREA NITROGEN 9 MG/DL (7-18); CALCIUM 8.9 MG/DL (8.5-10.1); CHLORIDE 107 MEQ/L (98-107); CREATININE 0.95 MG/DL (0.60-1.30); GLOMERULAR FILTRATION RATE 83 ML/MIN (>89); GLUCOSE,RANDOM 108 MG/DL (74-106); MAGNESIUM 1.3 MG/DL (1.5-2.5); POTASSIUM 4.1 MEQ/L (3.5-5.1); SODIUM (NA) 140 MEQ/L (136-145)
[2017-10-26 12:46] LABS: ALT (GPT) 31 U/L (12-78)
[2017-10-26 12:48] LABS: PROTHROMBIN TIME - PATIENT 10.1 SEC (9.8-11.6)
[2017-10-26 12:50] LABS: ALKALINE PHOSPHATASE 76 U/L (45-117); CREATINE KINASE 131 U/L (39-308); TOTAL BILIRUBIN ADULT 0.4 MG/DL (0.2-1.0); TOTAL PROTEIN 6.8 GM/DL (6.4-8.2); TROPONIN I LESS THAN 0.02 NG/ML (0.02-0.05)
[2017-10-26 13:03] LABS: CKMB 1.6 NG/ML (0.5-3.6)
[2017-10-26 13:16] LABS: B-TYPE NATRIURETIC PEPTIDE 22 PG/ML (0-100)
== END 2017-10-26 14:26 | disposition left against medical advice (07) ==
LOC: NEPE 10:10 → NEDA 13:23
DX: R07.9 Chest pain, unspecified (principal); M79.89 Other specified soft tissue disorders; I11.0 Hypertensive heart disease with heart failure; I50.9 Heart failure, unspecified; F17.200 Nicotine dependence, unspecified, uncomplicated
CPT/HCPCS: 71046; 80053; 82550; 82552; 83735; 83880; 84484; 85025; 85610; 85730; 93005; 93970; 99285